=== PATIENT | female | born 1980 | race Caucasian/White ===

== ENCOUNTER → 2018-05-03 | Day surgery (SDC) | payer OTHER ==
[2018-05-01 10:00] VITALS: BMI 39.1
[~2018-05-03] MED LIST: KETOROLAC TROMETHAMINE 30 MG/1 ML VIAL IVPUSH ONE; LACTATED RINGERS SOLUTION 1,000 ML IV SCH; LIDOCAINE HCL/PF 2% SDV 5ML VIAL ONE; MIDAZOLAM HCL 2 MG/2 ML SINGLE DOSE VIAL ONE; ONDANSETRON 4 MG/2 ML VIAL IVPUSH PRN; PROPOFOL 20 ML ONE; SUCCINYLCHOLINE CHLORIDE 200 MG/10 ML VIAL ONE
--- NOTE | 2018-05-03 14:09 | HP ---
History & Physical Update - History History: No Change - Physical Physical: No Change - Assessment Assessment: No Change - Plan Plan: No Change Currently as noted:: For D&C, hysteroscopy
--- NOTE | 2018-05-03 15:55 | OP ---
Operative Note - Note: Operative Date: 05/03/18 Pre-Operative Diagnosis: Menometrorrhagia, obesity Operation: Hysteroscopy, D&C Findings: Active vaginal bleeding preop. Enlarged uterine cavity, sounded to 10cm. Disorganized endometrium, no lesions. Post-Operative Diagnosis: Same as Pre-op Surgeon: Moshe Chua Anesthesiologist/ACADEMIC COUNSELOR: Luis Millard Anesthesia: General Specimens Removed: Endometrial curettings Estimated Blood Loss (mls): 20 Blood Volume Replaced (mls): 0 Fluid Volume Replaced (mls): 500 Operative Report Dictated: Yes
[2018-05-03 16:11] VITALS: TEMP 98.4
[2018-05-03 16:51] VITALS: BP 131/90; PULSE 75
--- NOTE | 2018-05-04 00:24 | OP ---
DATE OF OPERATION: 05/03/2018 DATE OF DICTATION: 05/03/2018 PREOPERATIVE DIAGNOSIS: Menorrhagia. Obesity. POSTOPERATIVE DIAGNOSIS: Menorrhagia. Obesity. PROCEDURE: Hysteroscopy dilation and curettage. SURGEON: Luz Marina Salinas M.D. ENTRY LEVEL CIVIL ENGINEER: None. ANESTHESIOLOGIST: Luis Milladr M.D. ANESTHESIA: General. COMPLICATIONS: None. PATHOLOGY: Endometrial curettings. ESTIMATED BLOOD LOSS: 20 mL. INTRAVENOUS FLUIDS: 500 mL. FINDINGS: Examination under anesthesia revealed a slightly enlarged anteverted uterus. No pelvic or adnexal masses. Hysteroscopy revealed a slightly enlarged uterine cavity that was sounded to 10 cm, disorganized endometrium, no lesions, active vaginal bleeding was observed preoperatively. Good hemostasis was noted postoperatively. DESCRIPTION OF PROCEDURE: The patient was met preoperatively. Risks, benefits, and alternatives of surgery were discussed in detail. All questions were answered. We reviewed the risk of infection, bleeding, perforation, uterine scarring, amenorrhea, infertility, need for further surgery to repair any complications. The patient verbalized understanding. We reviewed the consent form. The consent form was signed, and the patient requested to proceed with the surgery. The patient was brought to the OR with the IV running. She was placed on the surgical table in the supine position. General anesthesia was achieved without difficulty. The patient was then positioned in the dorsal lithotomy position using Alexander stirrups. She was examined under anesthesia with the findings as described above. The patient was then prepped and draped in the usual sterile fashion. A timeout procedure was conducted as per standard protocol. A weighted speculum was introduced inside the patient's vagina with good visualization of the cervix. The cervix was grasped with a single-toothed tenaculum. The cervical os did not need to be dilated, and a diagnostic hysteroscope was introduced into the uterine cavity. The examination showed active vaginal bleeding preoperatively. Hysteroscopy revealed an enlarged uterine cavity with disorganized endometrium. No lesions were observed. The hysteroscope was then removed. A sharp curettage was performed, and the tissue was sent to pathology. Once this was completed, a hysteroscope was once again introduced into the uterine cavity. Good hemostasis was noted. A normal uterine cavity was observed. The hysteroscope was then removed. Good hemostasis was confirmed. All of the instruments were removed from the patient. Sponge, lap, and instrument counts were correct. The patient was returned to supine position. She was transferred to recovery room in stable condition and awake. LUZ MARINA SALINAS M.D. [id number]
--- NOTE | 2018-05-06 13:45 | PATH ---
Surgical Pathology Report Patient Name: LUCA GIBSON [facility]. Rec. #: [id number] /Age/Gender: 1980 (Age: 37) / F Account: [id number] Location: [facility] SUR[facility] Taken: 05/03/2018 Received: 05/04/2018 Reported: 05/06/2018 Physicians: Moshe Chua M.D. Specimen(s) Received ENDOMETRIAL CURETTINGS Clinical History Menorrhagia, prior history of placental nodule now on OCP Final Diagnosis ENDOMETRIAL CURETTINGS: FRAGMENTS OF ENDOMETRIAL POLYP. SEPARATE FRAGMENTS OF ENDOMETRIAL TISSUE WITH INACTIVE GLANDS AND DECIDUALIZED STROMA, CONSISTENT WITH EXOGENOUS HORMONE THERAPY EFFECT. Electronically Signed James Casey M.D. Gross Description Received in formalin labeled "endometrial curetting," is a 4.0 x 3.0 x 0.3 cm aggregate of rodas-brown tissue fragments admixed with mucus. The formalin is filtered and the specimen is entirely submitted in 2 cassettes. /05/04/2018 saudi05/04/2018
== END | disposition home or self-care (01) ==
LOC: JASU-SURG 05:29
PROVIDERS: ATTEND Obstetrics & Gynecology
PROC: 0UDB7ZX Extraction of Endometrium, Via Natural or Artificial Opening, Diagnostic (ICD-10-PCS; principal; 2018-05-03 14:45)
PROC: 0UJD8ZZ Inspection of Uterus and Cervix, Via Natural or Artificial Opening Endoscopic (ICD-10-PCS; 2018-05-03 14:45)
DX: N92.0 Excessive and frequent menstruation with regular cycle (principal); E66.9 Obesity, unspecified
CPT/HCPCS: 86850; 86900; 86901; 88305-TC; 94760